=== PATIENT | male | born 1985 | race Caucasian/White ===

== ENCOUNTER 2022-02-08 07:33 | Emergency (ER) | payer OTHER, SELFPAY ==
[2022-02-08 07:36] VITALS: BP 135/55; PULSE 65; RESP 18; TEMP 35.6; O2SAT 99; BMI 31.0
--- NOTE | 2022-02-08 07:42 | ED_ITS ---
HPI - Back Pain/Injury General Chief Complaint: Back Pain/Injury Stated Complaint: back muscle spams Time Seen by Provider: 02/08/22 07:42 Source: patient Mode of arrival: ambulatory Limitations: no limitations History of Present Illness MD elicited complaint: back pain and back injury Onset (ago): day(s) (3) Timing: constant Severity: moderate Similar Symptoms Previously: No Quality: spasming and throbbing Location: lumbar spine Radiation: none Exacerbating factors: movement and walking Relieving factors: none Context: while lifting and turning/twisting Associated symptoms: denies other symptoms Treatments prior to arrival: cold therapy, heat therapy, NSAIDS, acetaminophen and other medications Work related injury: No Related Data Previous Rx's Medication Instructions Recorded diazepam 5 mg tablet (Valium) 5 mg PO TID PRN #10 tab 02/08/22 Allergies Allergy/AdvReac Type Severity Reaction Status Date / Time No Known Allergies Allergy Verified 02/08/22 07:41 Review of Systems Review of Systems: Constitutional : No Weight loss, No Fever, No Chills, ENT/Mouth : No Hearing loss, No Ear Pain, No Nasal Congestion, No Sinus Pain, No Hoarseness, No sore throat, No Rhinorrhea, No Swallowing Difficulty Cardiovascular : No Chest Pain, No SOB Respiratory : No Cough, No Dyspnea Gastrointestinal : No Nausea, No Vomiting, No Diarrhea, No abdominal Pain, No Hematochezia, No Melena Genitourinary : No Dysuria, No Urinary Frequency, No Hematuria, No Urinary Incontinence, Musculoskeletal : positive back pain Skin : No Skin Lesions, No rash Neuro : No Weakness, No Numbness, No Paresthesias, no loss of bowel or bladder incontinence, no saddle anesthesia [facility] Past Medical History Medical History (Updated 02/08/22 @ 07:53 by Janette Cottrell DO) No pertinent past medical history Social History Social History (Updated 02/08/22 @ 07:51 by Janette Cottrell DO) Patient Tobacco Use Status: Never used Tobacco Use of substances other than those prescribed or required for medical reasons: No Advance Directives: No Advance Directives Information Provided: No Physical Exam Vital Signs: Vital Signs: Last Vital Signs Temp 96.1 F L 02/08/22 07:36 Pulse 65 02/08/22 07:36 Resp 18 02/08/22 07:36 BP 135/55 L 02/08/22 07:36 Pulse Ox 99 02/08/22 07:36 BMI result Body Mass Index 31.0 Appearance: Alert. Oriented X3. No acute distress. Eyes: Pupils equal, round and reactive to light. ENT: Pharynx normal. Neck: Normal inspection. Neck supple. CVS: Normal heart rate and rhythm. Pulses normal. Respiratory: No respiratory distress. Breath sounds normal. Abdomen: Soft and nontender. Back: ttp along low lumbar paraspinals Skin: Skin warm and dry. Normal skin color. Normal skin turgor. Extremities: No lower extremity edema. No calf ttp Neuro: Oriented X 3. No motor deficit. No sensory deficit. SILT inner thigh, good distal 5/5 strength 2+ DTR in patella MDM - Back Pain/Injury MDM Narrative Medical decision making narrative: 36 yo male healthy no IVDA, no DOAC here with c/o low back pain without radicular symptoms after lifting and twisting something on Tuesday - no b/b incontinence no saddle anesthesia no red flags - will start on valium. He is doing everything else such as motrin, tylenol, lidocaine patches. Refer to PCP if this does not improve. Discharge Plan Discharge Clinical Impression: Lumbar paraspinal muscle spasm Patient Disposition: Home, Self-Care Instructions: Muscle Spasm (ED), Back Pain (ED) Additional Instructions: return to ED for any worsening symptoms or concerns if not better in 3 days call your doctor about possible MRI vs physical therapy Prescriptions: New diazepam [Valium] 5 mg tablet 5 mg PO TID PRN (Reason: muscle spasm) Qty: 10 0RF Stand Alone Forms: Work/School Release
[2022-02-08] MEDS: diazePAM 2 MG TABLET 5 MG PO (08:09)
--- NOTE | 2022-02-08 08:15 | PC.NURSE ---
PT EVALUATED BY PROVIDER. PLAN IS FOR MEDICATION AND DISCHARGE. PT AWAKE, ALERT AND ORIENTED X 3 SKIN WARM AND DRY. RESP UNLABORED. DENIES N/V. NEUROS INTACT. ROGERS FREELY. AMBULATORY, GAIT STEADY
== END 2022-02-08 08:19 | disposition home or self-care (01) ==
LOC: HO.ED 07:57
PROVIDERS: Emergency Provider Emergency Medicine
DX: M62.830 Muscle spasm of back (principal); M54.50 Low back pain, unspecified
CPT/HCPCS: 99283

== ENCOUNTER 2022-11-08 13:09 | Emergency (ER) | payer OTHER, SELFPAY ==
[2022-11-08 13:13] VITALS: BP 133/70; PULSE 64; RESP 18; TEMP 36.3; O2SAT 98; BMI 30.2
--- NOTE | 2022-11-08 13:14 | ED_ITS ---
HPI - Back Pain/Injury General Chief Complaint: Back Pain/Injury Stated Complaint: Lower back pain Time Seen by Provider: 11/08/22 13:18 Source: patient Mode of arrival: ambulatory History of Present Illness HPI Narrative: 37yo M w/no significant PMHx presenting to the ED c/o acute on chronic left- sided low back pain times a few days. Admits to similar symptoms in the past exacerbated from work. Denies direct injury/trauma or fall. Reports taking Flexeril without relief. Denies fever, chills, numbness, tingling, weakness, urinary incontinence/retention, hematuria/dysuria MD elicited complaint: back pain Onset (ago): day(s) Related Data Previous Rx's Medication Instructions Recorded diazepam 5 mg tablet (Valium) 5 mg PO TID PRN muscle spasm #10 02/08/22 tabs acetaminophen 500 mg tablet 500 mg PO Q6H PRN fever or pain 11/08/22 (Tylenol Extra Strength) #14 tabs cyclobenzaprine 5 mg tablet 5 mg PO Q8H PRN pain (scale score 11/08/22 7-10) 5 days #14 tabs lidocaine 5 % topical patch 1 patch topical DAILY PRN pain #30 11/08/22 (Lidoderm) ea naproxen 500 mg tablet 500 mg PO BID PRN pain 10 days #20 11/08/22 tabs prednisone 20 mg tablet 40 mg PO DAILY 5 days #10 tabs 11/08/22 Allergies Allergy/AdvReac Type Severity Reaction Status Date / Time No Known Allergies Allergy Verified 02/08/22 07:41 Review of Systems Review of Systems: Constitutional: No Fever, No Chills ENT/Mouth: No Ear Pain, No Nasal Congestion, No sore throat, No Rhinorrhea, No Swallowing Difficulty Cardiovascular: No Chest Pain, No SOB Respiratory: No Cough, No Sputum, No Wheezing Gastrointestinal: No Nausea, No Vomiting, No Diarrhea, No Constipation, No Abdominal pain Genitourinary: No Dysuria, No Urinary Frequency, No Hematuria, No Urinary Incontinence/retention, No Flank Pain Musculoskeletal: + joint pain, No Myalgias, No Joint Swelling Skin: No Skin Lesions, No rash Neuro: No Weakness, No Numbness, No Paresthesias Yes all other systems are reviewed and are negative Constitutional: Constitutional: Reports as per HPI Neurologic: Denies Sensory deficit (Neuro) PMFSH Past Medical History Attestation statement: The following information was validated with the patient. Medical History No pertinent past medical history Social History Social History Patient Tobacco Use Status: Never used Tobacco Physical Exam Vital Signs: Vital Signs: Last Vital Signs Temp 97.4 F 11/08/22 13:13 Pulse 64 11/08/22 13:13 Resp 18 11/08/22 13:13 BP 133/70 11/08/22 13:13 Pulse Ox 98 11/08/22 13:13 O2 Del Method 11/08/22 13:13 BMI result Body Mass Index 30.2 Const: General: cooperative, healthy appearing and no acute distress Orientation/consciousness: patient oriented x3 Limitations: no limitations HEENT: Head: Yes normal to inspection and Yes atraumatic Ears: hearing grossly normal bilaterally General nose exam: Normal external nose present Face and sinus: Yes normal facial exam Eyes: General: appearance normal, both eyes and all related structures EOM: EOMs intact bilaterally Neck: Neck: Yes normal visual inspection and Yes no meningeal signs Resp: Effort & Inspection: normal respiratory effort and no respiratory distress Cardio: Rate: regular rate Heart sounds: S1 normal heart sound present and S2 normal heart sound present GI: Inspection: Yes normal to inspection Palpation (GI): Soft to palpation, nontender, no guarding and not rigid : General: Yes no CVA tenderness Back/Spine/Pelvis: Other: No midline thoracic/lumbar spinous tenderness/step-off or deformity. +mild L sided low back MSK ttp. no erythema/warmth or ecchymosis Back: no CVA tenderness Skin: Rashes: no rashes Wounds: no wounds Neuro: Other: Strength intact throughout. No saddle anesthesia. Sensation intact to light touch. Neurovascular intact distally General: patient oriented x3, gait normal, tone normal, moves all extremities, no meningeal signs and no focal motor deficits Gait exam (Neuro): Normal gait present Motor exam (neuro): 5/5 motor strength present throughout Sensory Exam: No Sensory deficit (Neuro) Extrem: General: Yes normal to inspection Medical Decision Making Medical Decision Making MDM Narrative: 37yo M w/no significant PMHx presenting to the ED c/o acute on chronic left- sided low back pain times a few days. On exam vital signs stable, NAD, nontoxic appearing, mild left-sided lower lumbar MSK tenderness, no midline spinous tenderness or red flag symptoms. Ambulating with steady gait. Concern for MSK pain/strain. Low suspicion for sciatica, renal stones/pyelo, epidural abscess, or fracture Plan: IM Toradol, pain control, PCP follow-up Results discussed with patient including worrisome signs and symptoms and strict return precautions, and when to return to the emergency department. They verbalized understanding and feel safe for discharge at this time. Differential Diagnosis Differential Diagnoses: The differential diagnosis associated with the presentation includes As above Prescription Management I considered prescription management with: Pain Medication Discharge Plan Discharge Clinical Impression: Strain of lumbar region Patient Disposition: Home, Self-Care Instructions: Acute Low Back Pain (ED) Additional Instructions: Your pain is likely musculoskeletal Flexeril is a muscle relaxer, take at night as it makes you drowsy, do not drive, drink alcohol, or operate machinery while taking it Naproxen as an anti-inflammatory / pain medication, take with food Lidoderm patches are numbing patches, apply to painful area Prednisone is a steroid to help with inflammation In addition take Tylenol at home If symptoms persist or worsen, pain becomes unbearable, you developed urinary retention or incontinence, or weakness return to the ED Prescriptions: New prednisone 20 mg tablet 40 mg PO DAILY 5 Days Qty: 10 0RF acetaminophen [Tylenol Extra Strength] 500 mg tablet 500 mg PO Q6H PRN (Reason: fever or pain) Qty: 14 0RF lidocaine [Lidoderm] 5 % adhesive patch,medicated 1 patch topical DAILY MDD remove after 12 hours PRN (Reason: pain) Qty: 30 0RF Rx Instructions: leave on most painful area for up to 12 hrs naproxen 500 mg tablet 500 mg PO BID PRN (Reason: pain) 10 Days Qty: 20 0RF cyclobenzaprine 5 mg tablet 5 mg PO Q8H PRN (Reason: pain (scale score 7-10)) 5 Days Qty: 14 0RF No Action diazepam [Valium] 5 mg tablet 5 mg PO TID PRN (Reason: muscle spasm) Qty: 10 0RF Referrals: Physician,Unknown J [Primary Care Provider] - 1 week Stand Alone Forms: Work/School Release
[2022-11-08] MEDS: Ketorolac Tromethamine 30 MG/ML VIAL IM (13:24)
== END 2022-11-08 13:35 | disposition home or self-care (01) ==
LOC: HO.ED 13:30
PROVIDERS: Emergency Provider Student in an Organized Health Care Education/Training Program
DX: S39.012A Strain of muscle, fascia and tendon of lower back, initial encounter (principal); X58.XXXA Exposure to other specified factors, initial encounter; Z79.899 Other long term (current) drug therapy; Y93.9 Activity, unspecified; Y92.9 Unspecified place or not applicable; Y99.9 Unspecified external cause status
CPT/HCPCS: 96372; 99283; 99284; J1885

== ENCOUNTER 2023-06-09 11:21 | Emergency (ER) | payer OTHER, SELFPAY ==
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
--- NOTE | ~2023-06-09 | XR_ITS ---
EXAMINATION: XR LUMBOSACRAL SPINE CLINICAL INFORMATION: Back pain COMPARISON: None available. TECHNIQUE: Frontal and lateral views are spine FINDINGS: The vertebral bodies and posterior elements are normal. The disc spaces are preserved and the vertebral alignment is normal. The paraspinal soft tissues are normal. XR/XR lumbar spine 2-3V IMPRESSION: Unremarkable lumbar spine x-rays.
--- NOTE | ~2023-06-09 | XR_ITS ---
EXAMINATION: XR THORACIC SPINE CLINICAL INFORMATION: Back pain COMPARISON: None available. TECHNIQUE: Frontal and lateral views of the thoracic spine were obtained. FINDINGS: There is no fracture or bone destruction seen and the vertebral alignment is normal. There is no disc space narrowing. There is no abnormality of the paraspinal soft tissues. XR/XR thoracic spine 3V IMPRESSION: Unremarkable plain radiographs of the dorsal spine.
[2023-06-09 11:29] VITALS: BP 149/86; PULSE 78; RESP 18; TEMP 36.8; O2SAT 98; BMI 31.0
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
--- NOTE | 2023-06-09 12:21 | PC.NURSE ---
C-Spine remains in place at this time. Awaiting review/report from radiology. Images obtained, awaiting results.
[2023-06-09] MEDS: Lidocaine 4 % Patch ADH..PATCH 2 PATCH TRANSDERMA (12:59)
[2023-06-09] MEDS: Ketorolac Tromethamine 15 MG/ML VIAL 30 MG IM (12:59)
--- NOTE | 2023-06-09 12:59 | PC.NURSE ---
Unable to scan patient's bracelet due to system downtime. Administered Lidocaine 4% patches (2) and Toradol 30mg IM as ordered.
--- NOTE | 2023-06-09 14:14 | PC.NURSE ---
Patient's is at the bedside. Patient states that pain remains a 7 to 8 out of 10 at this time, despite previous Toradol & Lidocaine administration. demanded provider to return to the room to discuss receiving additional medications for pain. YAJAIRA Hernandez to the bedside to speak with patient & family. Agreed to administer Cyclobenzaprine & Tylenol, prior to discharge, however, narcotics are not indicated. All imaging is normal, and patient is able to ambulate normally.
--- NOTE | 2023-06-09 14:15 | PC.NURSE ---
Upon medicating with requested Tylenol & Cyclobenzaprine, patient & insist on leaving now instead of waiting for re-evaluation of pain medication effectiveness. Patient's on the phone with Preet's primary care physician, requesting an appointment today stating (in [place]): apparently, he doesn't have any fractures or tears or anything, but he's still in pain. Can you give him something? We already went to the ER and we're leaving now . Conversation continued beyond discharge from ER. Provider aware.
[2023-06-09] MEDS: Acetaminophen 325 MG TABLET 975 MG PO (14:21)
[2023-06-09] MEDS: Cyclobenzaprine HCl 10 MG TABLET PO (14:21)
== END 2023-06-09 14:28 | disposition home or self-care (01) ==
PROVIDERS: Emergency Provider Student in an Organized Health Care Education/Training Program
DX: S06.0XAA Concussion with loss of consciousness status unknown, initial encounter (principal); S13.4XXA Sprain of ligaments of cervical spine, initial encounter; M54.50 Low back pain, unspecified; M54.6 Pain in thoracic spine; R40.2410 Glasgow coma scale score 13-15, unspecified time; V43.52XA Car driver injured in collision with other type car in traffic accident, initial encounter; Y93.9 Activity, unspecified; Y92.410 Unspecified street and highway as the place of occurrence of the external cause; Y99.9 Unspecified external cause status; Z79.899 Other long term (current) drug therapy
CPT/HCPCS: 70450; 72072; 72100; 72125; 99283; 99284; J1885